=== PATIENT | male | born 1945 | race Caucasian/White ===

== ENCOUNTER → 2016-09-30 | Outpatient (CLI) | payer MEDICARE, OTHER, BC ==
[~2016-09-30] MED LIST: ALLO300T2 PO; ATO40T PO; BENA20TA4 PO; METO-169 PO; TRIATAB3 PO
[2016-09-30 09:25] LABS: Basophils # (auto) 0 uL; Basophils % (auto) 0.7 % (0.0-2.0); Eosinophils # (auto) 0.2 uL; Eosinophils % (auto) 2.7 % (0.0-7.0); Hematocrit 45.2 % (41.0-53.0); Hemoglobin 15.2 g/dL (13.5-17.5); Lymphocytes # (auto) 1.6 uL; Lymphocytes % (auto) 24.7 % (10.0-50.0); Mean Corpuscular Hemoglobin 30.4 pg (28.0-32.0); Mean Corpuscular Hgb Conc. 33.7 g/dL (32.0-36.0); Mean Corpuscular Volume 90.3 fL (80.0-100.0); Monocytes # (auto) 0.4 uL; Monocytes % (auto) 5.7 % (0.0-12.0); Neutrophils # (auto) 4.2 uL; Neutrophils % (auto) 66.2 % (37.0-80.0); Platelet Count (auto) 221 10^3/uL (140-450); Red Cell Distribution Width 13.9 % (11.6-16.0); White Blood Cell 6.4 10^3/uL (4.4-10.8)
[2016-09-30 09:59] LABS: Albumin 3.8 g/dL (3.4-5.0); BUN/Creatinine Ratio 21.3; Bilirubin, Total 0.6 mg/dL (0.2-1.0); Calcium 8.3 mg/dL (8.5-10.1); Potassium 4.2 mmol/L (3.5-5.1); Total Protein 7.1 g/dL (6.4-8.2); Uric Acid 4.7 mg/dL (3.5-7.2)
== END | disposition home or self-care (01) ==
LOC: LAB 08:17
DX: E79.0 Hyperuricemia without signs of inflammatory arthritis and tophaceous disease (principal); R42 Dizziness and giddiness; E78.5 Hyperlipidemia, unspecified; R73.9 Hyperglycemia, unspecified
CPT/HCPCS: 36415; 80053; 80061; 83036; 84443; 84550; 85025

== ENCOUNTER → 2017-01-19 | Outpatient (CLI) | payer MEDICARE, OTHER, BC ==
[~2017-01-19] MED LIST changes: +BENA20TA14 PO; -BENA20TA4 PO
[2017-01-19 07:49] LABS: Basophils # (auto) 0 uL; Basophils % (auto) 0.5 % (0.0-2.0); Eosinophils # (auto) 0.1 uL; Eosinophils % (auto) 2.5 % (0.0-7.0); Hemoglobin 14.2 g/dL (13.5-17.5); Lymphocytes # (auto) 1.3 uL; Mean Corpuscular Hemoglobin 31.7 pg (28.0-32.0); Mean Corpuscular Hgb Conc. 34.7 g/dL (32.0-36.0); Mean Corpuscular Volume 91.5 fL (80.0-100.0); Mean Platelet Volume 8.3 fL (7.4-10.4); Monocytes # (auto) 0.4 uL; Monocytes % (auto) 7.1 % (0.0-12.0); Neutrophils % (auto) 67.9 % (37.0-80.0); Platelet Count (auto) 196 10^3/uL (140-450); Red Cell Distribution Width 14.4 % (11.6-16.0); White Blood Cell 5.9 10^3/uL (4.4-10.8)
[2017-01-19 08:05] LABS: Albumin 3.8 g/dL (3.4-5.0); BUN/Creatinine Ratio 20.2; Calcium 8.4 mg/dL (8.5-10.1); Potassium 3.8 mmol/L (3.5-5.1); Total Protein 6.6 g/dL (6.4-8.2); Uric Acid 5.2 mg/dL (3.5-7.2)
== END | disposition home or self-care (01) ==
LOC: LAB 07:13
DX: R73.9 Hyperglycemia, unspecified (principal); R97.20 Elevated prostate specific antigen [PSA]; R42 Dizziness and giddiness; E03.9 Hypothyroidism, unspecified; E78.5 Hyperlipidemia, unspecified; E79.0 Hyperuricemia without signs of inflammatory arthritis and tophaceous disease
CPT/HCPCS: 36415; 80053; 80061; 83036; 84439; 84443; 84550; 85025

== ENCOUNTER → 2017-04-27 | Outpatient (CLI) | payer MEDICARE, OTHER, BC ==
[2017-04-27 08:14] LABS: Basophils # (auto) 0.1 uL; Basophils % (auto) 0.9 % (0.0-2.0); CONDITION Y; Eosinophils # (auto) 0.2 uL; Eosinophils % (auto) 3.4 % (0.0-7.0); Hematocrit 45.2 % (41.0-53.0); Hemoglobin 15.4 g/dL (13.5-17.5); Lymphocytes # (auto) 1.4 uL; Lymphocytes % (auto) 22.4 % (10.0-50.0); Mean Corpuscular Hemoglobin 31.8 pg (28.0-32.0); Mean Corpuscular Volume 93.3 fL (80.0-100.0); Mean Platelet Volume 8.3 fL (6.9-10.8); Monocytes # (auto) 0.4 uL; Monocytes % (auto) 7.1 % (0.0-12.0); Neutrophils # (auto) 4.2 uL; Neutrophils % (auto) 66.2 % (37.0-80.0); Platelet Count (auto) 218 10^3/uL (140-450); Red Cell Distribution Width 14.1 % (11.8-14.3); White Blood Cell 6.3 10^3/uL (4.4-10.8)
[2017-04-27 08:46] LABS: Albumin 3.8 g/dL (3.4-5.0); BUN/Creatinine Ratio 12.9; Calcium 8.8 mg/dL (8.5-10.1); Potassium 4.3 mmol/L (3.5-5.1)
[2017-04-27 08:50] LABS: Bilirubin, Total 0.6 mg/dL (0.2-1.0); Total Protein 6.8 g/dL (6.4-8.2)
== END | disposition home or self-care (01) ==
LOC: LAB 07:49
DX: E78.5 Hyperlipidemia, unspecified (principal); R73.9 Hyperglycemia, unspecified; R42 Dizziness and giddiness; E03.9 Hypothyroidism, unspecified; E79.0 Hyperuricemia without signs of inflammatory arthritis and tophaceous disease; R97.21 Rising PSA following treatment for malignant neoplasm of prostate
CPT/HCPCS: 36415; 80053; 80061; 83036; 84153; 84439; 84443; 84550; 85025

== ENCOUNTER → 2017-08-07 | Outpatient (CLI) | payer MEDICARE, OTHER ==
[2017-08-07 12:12] LABS: BUN/Creatinine Ratio 23.5; Bilirubin, Total 0.8 mg/dL (0.2-1.0); Calcium 8.6 mg/dL (8.5-10.1); Potassium 3.8 mmol/L (3.5-5.1); Total Protein 7.2 g/dL (6.4-8.2)
== END | disposition home or self-care (01) ==
LOC: LAB 10:30
DX: E03.9 Hypothyroidism, unspecified (principal); E78.5 Hyperlipidemia, unspecified; R73.9 Hyperglycemia, unspecified
CPT/HCPCS: 36415; 80053; 80061; 83036; 84436; 84443

== ENCOUNTER → 2017-11-09 | Outpatient (CLI) | payer MEDICARE, OTHER ==
[2017-11-09 09:11] LABS: Albumin 3.4 g/dL (3.4-5.0); BUN/Creatinine Ratio 16.7; Bilirubin, Total 0.6 mg/dL (0.2-1.0); Calcium 7.9 mg/dL (8.5-10.1); Potassium 4.1 mmol/L (3.5-5.1); Total Protein 6.6 g/dL (6.4-8.2); Uric Acid 4.4 mg/dL (3.5-7.2)
[2017-11-09 10:14] LABS: Prostate Specific Antigen 2.02 ng/mL (0.0-4.0); T3 Total 0.79 ng/mL (0.60-1.81)
== END | disposition home or self-care (01) ==
LOC: LAB 08:16
DX: E78.5 Hyperlipidemia, unspecified (principal); N40.1 Benign prostatic hyperplasia with lower urinary tract symptoms; E03.9 Hypothyroidism, unspecified; E79.0 Hyperuricemia without signs of inflammatory arthritis and tophaceous disease
CPT/HCPCS: 36415; 80053; 80061; 84153; 84436; 84443; 84480; 84550

== ENCOUNTER 2017-11-12 16:04 | Emergency (ER) | payer MEDICARE, OTHER ==
[~2017-11-12] VITALS: Ht 175.3 cm; Wt 78.5 kg
[2017-11-12 18:21] LABS: Basophils # (auto) 0.1 uL; Basophils % (auto) 1.1 % (0.0-2.0); Eosinophils # (auto) 0.3 uL; Eosinophils % (auto) 5.1 % (0.0-7.0); Hematocrit 38.3 % (41.0-53.0); Hemoglobin 12.8 g/dL (13.5-17.5); Lymphocytes # (auto) 1.5 uL; Lymphocytes % (auto) 26.1 % (10.0-50.0); Mean Corpuscular Hemoglobin 31.3 pg (28.0-32.0); Mean Corpuscular Hgb Conc. 33.4 g/dL (32.0-36.0); Mean Corpuscular Volume 93.8 fL (80.0-100.0); Monocytes # (auto) 0.5 uL; Neutrophils # (auto) 3.5 uL; Neutrophils % (auto) 59.7 % (37.0-80.0); Platelet Count (auto) 180 10^3/uL (140-450); Red Blood Cells 4.09 10^6/uL (4.5-5.90); Red Cell Distribution Width 14.1 % (11.8-14.3); White Blood Cell 5.8 10^3/uL (4.4-10.8)
[2017-11-12 18:24] LABS: Albumin 3.7 g/dL (3.4-5.0); Bilirubin, Total 0.5 mg/dL (0.2-1.0); Calcium 8.4 mg/dL (8.5-10.1); Total Protein 6.9 g/dL (6.4-8.2)
[2017-11-12 18:42] LABS: Partial Thromboplastin Time 48.6 sec (22.64-33.71); Prothrombin Time 50.1 sec (9.37-12.3)
[2017-11-12 18:49] LABS: INR 4.53 (0.9-1.15)
[2017-11-12 19:48] VITALS: BP 122/80
== END 2017-11-13 00:15 | disposition home or self-care (01) ==
LOC: ER 16:06
DX: S93.401A Sprain of unspecified ligament of right ankle, initial encounter (principal); I10 Essential (primary) hypertension; E78.5 Hyperlipidemia, unspecified; I25.2 Old myocardial infarction; M10.9 Gout, unspecified; Z90.89 Acquired absence of other organs; Z98.61 Coronary angioplasty status; X50.0XXA Overexertion from strenuous movement or load, initial encounter; Y93.89 Activity, other specified; Y99.8 Other external cause status; Y92.89 Other specified places as the place of occurrence of the external cause
CPT/HCPCS: 29515; 36415; 73610; 73630; 73700; 80053; 83880; 84550; 85025; 85610; 85730; 93970

== ENCOUNTER → 2017-11-30 | Outpatient (CLI) | payer MEDICARE, OTHER ==
[2017-11-30 09:12] LABS: Albumin 3.6 g/dL (3.4-5.0); BUN/Creatinine Ratio 15.4; Bilirubin, Total 0.7 mg/dL (0.2-1.0); Calcium 8.6 mg/dL (8.5-10.1); Total Protein 6.6 g/dL (6.4-8.2)
== END | disposition home or self-care (01) ==
LOC: LAB 07:42
DX: E11.65 Type 2 diabetes mellitus with hyperglycemia (principal); I10 Essential (primary) hypertension; E78.5 Hyperlipidemia, unspecified
CPT/HCPCS: 36415; 80053; 80061; 83036

== ENCOUNTER → 2018-02-01 | Outpatient (CLI) | payer MEDICARE, OTHER ==
[2018-02-01 07:47] LABS: Basophils # (auto) 0.1 uL; Basophils % (auto) 1.3 % (0.0-2.0); Eosinophils # (auto) 0.2 uL; Eosinophils % (auto) 4.7 % (0.0-7.0); Hematocrit 40.8 % (41.0-53.0); Hemoglobin 13.9 g/dL (13.5-17.5); Lymphocytes % (auto) 20.6 % (10.0-50.0); Mean Corpuscular Hemoglobin 31.4 pg (28.0-32.0); Mean Corpuscular Hgb Conc. 34.1 g/dL (32.0-36.0); Mean Corpuscular Volume 92.2 fL (80.0-100.0); Monocytes # (auto) 0.3 uL; Monocytes % (auto) 6.6 % (0.0-12.0); Neutrophils # (auto) 3.2 uL; Neutrophils % (auto) 66.8 % (37.0-80.0); Nucleated Red Blood Cells % 0.1 %; Platelet Count (auto) 154 10^3/uL (140-450); Red Blood Cells 4.42 10^6/uL (4.5-5.90); Red Cell Distribution Width 14.3 % (11.8-14.3); White Blood Cell 4.8 10^3/uL (4.4-10.8)
[2018-02-01 08:23] LABS: Albumin 3.8 g/dL (3.4-5.0); BUN/Creatinine Ratio 23.6; Bilirubin, Total 0.6 mg/dL (0.2-1.0); Calcium 8.6 mg/dL (8.5-10.1); Total Protein 6.8 g/dL (6.4-8.2)
[2018-02-01 09:02] LABS: Prostate Specific Antigen 1.38 ng/mL (0.0-4.0)
== END | disposition home or self-care (01) ==
LOC: LAB 07:14
DX: E34.9 Endocrine disorder, unspecified (principal); E29.1 Testicular hypofunction; E07.89 Other specified disorders of thyroid; E11.9 Type 2 diabetes mellitus without complications; E11.65 Type 2 diabetes mellitus with hyperglycemia; E03.9 Hypothyroidism, unspecified; I25.10 Atherosclerotic heart disease of native coronary artery without angina pectoris; I10 Essential (primary) hypertension; N40.0 Benign prostatic hyperplasia without lower urinary tract symptoms; R39.15 Urgency of urination; Z79.899 Other long term (current) drug therapy
CPT/HCPCS: 36415; 80053; 80061; 82306; 82607; 82670; 84153; 84402; 84403; 84436; 84443; 84481; 85025; 86376

== ENCOUNTER → 2018-03-11 | Outpatient (CLI) | payer MEDICARE, OTHER ==
[2018-03-11 08:59] LABS: Albumin 3.7 g/dL (3.4-5.0); BUN/Creatinine Ratio 15.8; Bilirubin, Total 0.9 mg/dL (0.2-1.0); Calcium 8.5 mg/dL (8.5-10.1); Potassium 3.9 mmol/L (3.5-5.1); Total Protein 6.8 g/dL (6.4-8.2); Uric Acid 4.7 mg/dL (3.5-7.2)
[2018-03-11 09:25] LABS: Prostate Specific Antigen 1.84 ng/mL (0.0-4.0)
[2018-03-11 09:26] LABS: T3 Total 1.09 ng/mL (0.60-1.81)
== END | disposition home or self-care (01) ==
LOC: LAB 07:38
DX: E78.5 Hyperlipidemia, unspecified (principal); E03.9 Hypothyroidism, unspecified; N40.1 Benign prostatic hyperplasia with lower urinary tract symptoms; E79.0 Hyperuricemia without signs of inflammatory arthritis and tophaceous disease; E11.9 Type 2 diabetes mellitus without complications; I10 Essential (primary) hypertension
CPT/HCPCS: 36415; 80053; 80061; 84153; 84436; 84443; 84480; 84550

== ENCOUNTER → 2018-05-31 | Outpatient (CLI) | payer MEDICARE, OTHER ==
[2018-05-31 10:16] LABS: Potassium 4.2 mmol/L (3.5-5.1)
[2018-05-31 10:30] LABS: Albumin 3.9 g/dL (3.4-5.0); BUN/Creatinine Ratio 20.2; Bilirubin, Total 0.7 mg/dL (0.2-1.0); Calcium 8.8 mg/dL (8.5-10.1); Total Protein 7.1 g/dL (6.4-8.2); Uric Acid 4.7 mg/dL (3.5-7.2)
== END | disposition home or self-care (01) ==
LOC: LAB 08:48
DX: E78.5 Hyperlipidemia, unspecified (principal); R73.9 Hyperglycemia, unspecified; E79.0 Hyperuricemia without signs of inflammatory arthritis and tophaceous disease
CPT/HCPCS: 36415; 80053; 80061; 82550; 83036; 84436; 84443; 84480; 84550

== ENCOUNTER → 2018-11-08 | Outpatient (CLI) | payer MEDICARE, OTHER ==
[2018-11-08 08:02] LABS: Albumin 3.9 g/dL (3.4-5.0); Calcium 9.1 mg/dL (8.5-10.1); Potassium 4.5 mmol/L (3.5-5.1); Uric Acid 4.6 mg/dL (3.5-7.2)
[2018-11-08 08:06] LABS: BUN/Creatinine Ratio 16.8; Bilirubin, Total 0.8 mg/dL (0.2-1.0); Total Protein 6.9 g/dL (6.4-8.2)
[2018-11-08 10:28] LABS: T3 Total 1.03 ng/mL (0.60-1.81)
[2018-11-08 10:29] LABS: Folate (Folic Acid) > 24.00 ng/mL (5.38-24)
== END | disposition home or self-care (01) ==
LOC: LAB 07:10
DX: E78.5 Hyperlipidemia, unspecified (principal); E53.9 Vitamin B deficiency, unspecified; E79.0 Hyperuricemia without signs of inflammatory arthritis and tophaceous disease; R73.9 Hyperglycemia, unspecified; I10 Essential (primary) hypertension
CPT/HCPCS: 36415; 80053; 80061; 82607; 82746; 83036; 84436; 84443; 84480; 84550

== ENCOUNTER → 2019-01-17 | Outpatient (CLI) | payer MEDICARE, OTHER | END | disposition home or self-care (01) | LOC: LAB 08:35 | DX: R97.20 Elevated prostate specific antigen [PSA] (principal) | CPT/HCPCS: 84153 ==

== ENCOUNTER → 2019-03-07 | Outpatient (CLI) | payer MEDICARE, OTHER ==
[2019-03-07 09:36] LABS: Potassium 3.8 mmol/L (3.5-5.1)
[2019-03-07 09:44] LABS: Albumin 3.8 g/dL (3.4-5.0); BUN/Creatinine Ratio 18.2; Bilirubin, Total 0.9 mg/dL (0.2-1.0); Calcium 8.5 mg/dL (8.5-10.1); Total Protein 7.2 g/dL (6.4-8.2); Uric Acid 4.8 mg/dL (3.5-7.2)
[2019-03-07 10:30] LABS: T3 Total 1.28 ng/mL (0.60-1.81)
[2019-03-07 10:31] LABS: Folate (Folic Acid) > 24.00 ng/mL (5.38-24)
== END | disposition home or self-care (01) ==
LOC: LAB 08:46
DX: E78.5 Hyperlipidemia, unspecified (principal); R73.9 Hyperglycemia, unspecified; E79.0 Hyperuricemia without signs of inflammatory arthritis and tophaceous disease; E53.9 Vitamin B deficiency, unspecified
CPT/HCPCS: 36415; 80053; 80061; 82550; 82607; 82746; 83036; 84436; 84443; 84480; 84550

== ENCOUNTER → 2019-06-20 | Outpatient (CLI) | payer MEDICARE, OTHER ==
[2019-06-20 09:57] LABS: Potassium 4.1 mmol/L (3.5-5.1)
[2019-06-20 10:04] LABS: Albumin 3.8 g/dL (3.4-5.0); BUN/Creatinine Ratio 21.7; Bilirubin, Total 0.6 mg/dL (0.2-1.0); Calcium 8.8 mg/dL (8.5-10.1); Total Protein 6.6 g/dL (6.4-8.2); Uric Acid 4.1 mg/dL (3.5-7.2)
[2019-06-20 10:10] LABS: Folate (Folic Acid) > 24.00 ng/mL (5.38-24); T3 Total 1.04 ng/mL (0.60-1.81)
== END | disposition home or self-care (01) ==
LOC: LAB 08:42
DX: E78.5 Hyperlipidemia, unspecified (principal); E79.0 Hyperuricemia without signs of inflammatory arthritis and tophaceous disease; E53.9 Vitamin B deficiency, unspecified; R73.9 Hyperglycemia, unspecified; I10 Essential (primary) hypertension; I25.2 Old myocardial infarction; Z98.61 Coronary angioplasty status; Z87.891 Personal history of nicotine dependence; Z98.890 Other specified postprocedural states
CPT/HCPCS: 36415; 80053; 80061; 82550; 82746; 83036; 84436; 84443; 84480; 84550

== ENCOUNTER → 2019-09-30 | Outpatient (CLI) | payer MEDICARE, OTHER ==
[2019-09-30 11:55] LABS: Potassium 3.8 mmol/L (3.5-5.1)
[2019-09-30 12:05] LABS: Free T4 (Free Thyroxine) 0.98 ng/dL (0.89-1.76); T3 Total 0.86 ng/mL (0.60-1.81)
[2019-09-30 12:06] LABS: Albumin 3.7 g/dL (3.4-5.0); BUN/Creatinine Ratio 17.5; Bilirubin, Total 0.7 mg/dL (0.2-1.0); Calcium 8.7 mg/dL (8.5-10.1); Folate (Folic Acid) > 24.00 ng/mL (5.38-24); Total Protein 6.5 g/dL (6.4-8.2); Uric Acid 4.6 mg/dL (3.5-7.2)
== END | disposition home or self-care (01) ==
LOC: LAB 10:52
DX: E78.5 Hyperlipidemia, unspecified (principal); R73.9 Hyperglycemia, unspecified; E79.0 Hyperuricemia without signs of inflammatory arthritis and tophaceous disease
CPT/HCPCS: 36415; 80053; 80061; 82607; 82746; 83036; 84439; 84443; 84480; 84550

== ENCOUNTER → 2019-12-12 | Outpatient (CLI) | payer MEDICARE, OTHER ==
[2019-12-12 08:45] LABS: Albumin 3.5 g/dL (3.4-5.0); BUN/Creatinine Ratio 19.4; Calcium 8.6 mg/dL (8.5-10.1); Potassium 3.8 mmol/L (3.5-5.1); Uric Acid 4.4 mg/dL (3.5-7.2)
[2019-12-12 08:48] LABS: Bilirubin, Total 0.6 mg/dL (0.2-1.0); Total Protein 6.7 g/dL (6.4-8.2)
[2019-12-12 08:58] LABS: T3 Total 0.74 ng/mL (0.60-1.81)
== END | disposition home or self-care (01) ==
LOC: LAB 07:28
DX: E78.5 Hyperlipidemia, unspecified (principal); R73.9 Hyperglycemia, unspecified; E53.9 Vitamin B deficiency, unspecified; E79.0 Hyperuricemia without signs of inflammatory arthritis and tophaceous disease
CPT/HCPCS: 36415; 80053; 80061; 82550; 82607; 83036; 84436; 84443; 84480; 84550

== ENCOUNTER → 2020-01-26 | Outpatient (CLI) | payer MEDICARE, OTHER | END | disposition home or self-care (01) | LOC: LAB 07:52 | DX: R97.20 Elevated prostate specific antigen [PSA] (principal) | CPT/HCPCS: 84154 ==

== ENCOUNTER 2020-02-09 12:53 | Emergency (ER) | payer MEDICARE, BC, OTHER ==
[~2020-02-09] VITALS: Ht 175.3 cm; Wt 78.5 kg
[2020-02-09 16:04] LABS: Basophils # (auto) 0.1 10 ^3/uL (0-0.2); Basophils % (auto) 0.7 % (0.0-2.0); Eosinophils # (auto) 0.1 10 ^3/uL (0-0.8); Eosinophils % (auto) 1.8 % (0.0-7.0); Hematocrit 41.8 % (41.0-53.0); Hemoglobin 14.2 g/dL (13.5-17.5); Lymphocytes # (auto) 1.1 10 ^3/uL (0.4-5.4); Lymphocytes % (auto) 14.7 % (10.0-50.0); Mean Corpuscular Hemoglobin 31.5 pg (28.0-32.0); Mean Corpuscular Volume 92.6 fL (80.0-100.0); Monocytes # (auto) 0.6 10 ^3/uL (0-1.3); Monocytes % (auto) 8.1 % (0.0-12.0); Neutrophils # (auto) 5.7 10 ^3/uL (1.6-8.6); Neutrophils % (auto) 74.7 % (37.0-80.0); Platelet Count (auto) 189 10^3/uL (140-450); Red Blood Cells 4.51 10^6/uL (4.5-5.90); Red Cell Distribution Width 14.6 % (11.8-14.3); White Blood Cell 7.6 10^3/uL (4.4-10.8)
[2020-02-09 16:23] LABS: Albumin 3.4 g/dL (3.4-5.0); Anion Gap 0 (5-15); Blood Urea Nitrogen 20 mg/dL (7-18); Calcium 8.2 mg/dL (8.5-10.1); Carbon Dioxide 33 mmol/L (21-32); Chloride 107 mmol/L (98-107); Glucose 103 mg/dL (74-106); Lipase 110 U/L (73-393); Potassium 3.7 mmol/L (3.5-5.1); Sodium 140 mmol/L (136-145)
[2020-02-09 16:26] LABS: Alanine Aminotransferase 30 U/L (16-61); GFR African American 100 mL/min; GFR Non-African American 83 mL/min
[2020-02-09 16:38] LABS: Alkaline Phosphatase 83 U/L (45-117); Aspartate Aminotransferase 24 U/L (15-37); Bilirubin, Total 0.7 mg/dL (0.2-1.0); Total Protein 6.5 g/dL (6.4-8.2)
[2020-02-09 17:10] VITALS: BP 134/74
[2020-02-09 17:48] LABS: BUN/Creatinine Ratio 21.1
== END 2020-02-09 18:23 | disposition home or self-care (01) ==
LOC: ER 12:53
DX: K29.70 Gastritis, unspecified, without bleeding (principal); E78.5 Hyperlipidemia, unspecified; I10 Essential (primary) hypertension; I25.2 Old myocardial infarction
CPT/HCPCS: 36415; 71046; 76700; 80053; 83690; 84484; 85025; 93005

== ENCOUNTER → 2020-03-22 | Outpatient (CLI) | payer MEDICARE, OTHER | END | disposition home or self-care (01) | LOC: LAB 09:28 | PROVIDERS: ATTEND Urology | DX: R97.20 Elevated prostate specific antigen [PSA] (principal) | CPT/HCPCS: 84154 ==

== ENCOUNTER → 2020-04-26 | Outpatient (CLI) | payer MEDICARE, OTHER ==
[~2020-04-26] VITALS: Ht 175.3 cm; Wt 77.6 kg
[~2020-04-26] MED LIST changes: +ADENOSINE 65 MG in GIVE UN-DILUTED 0 ML IV STA
== END | disposition home or self-care (01) ==
LOC: XY 08:41
PROVIDERS: ATTEND Internal Medicine
DX: I48.91 Unspecified atrial fibrillation (principal)
CPT/HCPCS: 78452; 93017; A9500; J0153

== ENCOUNTER → 2020-05-01 | Outpatient (CLI) | payer MEDICARE, OTHER ==
[~2020-05-01] MED LIST changes: -ADENOSINE 65 MG in GIVE UN-DILUTED 0 ML IV STA
[2020-05-01 10:43] LABS: Potassium 3.9 mmol/L (3.5-5.1)
[2020-05-01 10:49] LABS: T3 Total 0.86 ng/mL (0.60-1.81)
[2020-05-01 10:50] LABS: Folate (Folic Acid) > 24.00 ng/mL (5.38-24)
[2020-05-01 10:51] LABS: Albumin 3.7 g/dL (3.4-5.0); BUN/Creatinine Ratio 21.3; Bilirubin, Total 0.7 mg/dL (0.2-1.0); Calcium 8.6 mg/dL (8.5-10.1); Total Protein 6.5 g/dL (6.4-8.2); Uric Acid 4.8 mg/dL (3.5-7.2)
== END | disposition home or self-care (01) ==
LOC: LAB 09:42
DX: E78.5 Hyperlipidemia, unspecified (principal); E53.9 Vitamin B deficiency, unspecified; E79.0 Hyperuricemia without signs of inflammatory arthritis and tophaceous disease; R73.9 Hyperglycemia, unspecified
CPT/HCPCS: 36415; 80053; 80061; 82550; 82607; 82746; 83036; 84436; 84443; 84480; 84550

== ENCOUNTER → 2020-05-23 | Outpatient (CLI) | payer MEDICARE, OTHER ==
[2020-05-23 10:48] LABS: Basophils # (auto) 0.1 10 ^3/uL (0-0.2); Eosinophils # (auto) 0.3 10 ^3/uL (0-0.8); Eosinophils % (auto) 5.4 % (0.0-7.0); Hematocrit 38.1 % (41.0-53.0); Hemoglobin 13.1 g/dL (13.5-17.5); Lymphocytes # (auto) 1.4 10 ^3/uL (0.4-5.4); Lymphocytes % (auto) 27.2 % (10.0-50.0); Mean Corpuscular Hgb Conc. 34.5 g/dL (32.0-36.0); Mean Corpuscular Volume 92.9 fL (80.0-100.0); Monocytes # (auto) 0.4 10 ^3/uL (0-1.3); Monocytes % (auto) 7.3 % (0.0-12.0); Neutrophils # (auto) 2.9 10 ^3/uL (1.6-8.6); Neutrophils % (auto) 58.1 % (37.0-80.0); Platelet Count (auto) 167 10^3/uL (140-450); Red Cell Distribution Width 14.3 % (11.8-14.3)
[2020-05-23 11:31] LABS: Albumin 3.7 g/dL (3.4-5.0); Calcium 8.8 mg/dL (8.5-10.1); Potassium 3.7 mmol/L (3.5-5.1)
[2020-05-23 11:36] LABS: BUN/Creatinine Ratio 19.8; Bilirubin, Total 0.6 mg/dL (0.2-1.0); Total Protein 6.3 g/dL (6.4-8.2)
[2020-05-23 12:16] LABS: Folate (Folic Acid) > 24.00 ng/mL (5.38-24)
== END | disposition home or self-care (01) ==
LOC: LAB 10:30
DX: G31.84 Mild cognitive impairment of uncertain or unknown etiology (principal); R73.9 Hyperglycemia, unspecified; E78.5 Hyperlipidemia, unspecified
CPT/HCPCS: 36415; 80053; 80061; 82550; 82607; 82746; 83036; 84436; 84443; 85025

== ENCOUNTER → 2020-06-13 | Outpatient (CLI) | payer MEDICARE, OTHER | END | disposition home or self-care (01) | LOC: XYW 09:27 | PROVIDERS: ATTEND Internal Medicine | DX: I07.1 Rheumatic tricuspid insufficiency (principal); I48.91 Unspecified atrial fibrillation | CPT/HCPCS: 93306 ==

== ENCOUNTER → 2020-07-23 | Outpatient (CLI) | payer MEDICARE, OTHER ==
[2020-07-23 10:29] LABS: Basophils # (auto) 0.1 10 ^3/uL (0-0.2); Basophils % (auto) 1.3 % (0.0-2.0); Eosinophils # (auto) 0.1 10 ^3/uL (0-0.8); Eosinophils % (auto) 2.3 % (0.0-7.0); Hematocrit 39.9 % (41.0-53.0); Hemoglobin 13.5 g/dL (13.5-17.5); Lymphocytes # (auto) 1.4 10 ^3/uL (0.4-5.4); Lymphocytes % (auto) 23.8 % (10.0-50.0); Mean Corpuscular Hemoglobin 31.4 pg (28.0-32.0); Mean Corpuscular Hgb Conc. 33.8 g/dL (32.0-36.0); Mean Corpuscular Volume 92.8 fL (80.0-100.0); Monocytes # (auto) 0.4 10 ^3/uL (0-1.3); Monocytes % (auto) 7.4 % (0.0-12.0); Neutrophils # (auto) 3.8 10 ^3/uL (1.6-8.6); Neutrophils % (auto) 65.2 % (37.0-80.0); Platelet Count (auto) 176 10^3/uL (140-450); Red Blood Cells 4.29 10^6/uL (4.5-5.90); Red Cell Distribution Width 14.1 % (11.8-14.3); White Blood Cell 5.8 10^3/uL (4.4-10.8)
[2020-07-23 10:52] LABS: Albumin 3.6 g/dL (3.4-5.0); Calcium 8.5 mg/dL (8.5-10.1)
[2020-07-23 11:17] LABS: Folate (Folic Acid) > 24.00 ng/mL (5.38-24)
[2020-07-23 11:33] LABS: BUN/Creatinine Ratio 18.8; Bilirubin, Total 0.6 mg/dL (0.2-1.0); Total Protein 6.4 g/dL (6.4-8.2)
== END | disposition home or self-care (01) ==
LOC: LAB 10:06
DX: G31.84 Mild cognitive impairment of uncertain or unknown etiology (principal); E78.5 Hyperlipidemia, unspecified; R73.9 Hyperglycemia, unspecified
CPT/HCPCS: 36415; 80053; 80061; 82550; 82607; 82746; 83036; 84436; 84443; 85025

== ENCOUNTER 2020-11-15 15:51 | Emergency (ER) | payer MEDICARE, BC, OTHER ==
[~2020-11-15] VITALS: Ht 175.3 cm; Wt 82.1 kg
[~2020-11-15 15:51] MED LIST changes: -METO-169 PO; +METO-289 PO
[2020-11-15 16:02] VITALS: BP 137/82
== END 2020-11-15 17:42 | disposition home or self-care (01) ==
LOC: ER 15:51
DX: S13.4XXA Sprain of ligaments of cervical spine, initial encounter (principal); E78.5 Hyperlipidemia, unspecified; I10 Essential (primary) hypertension; I25.2 Old myocardial infarction; V43.52XA Car driver injured in collision with other type car in traffic accident, initial encounter; Y93.89 Activity, other specified; Y92.488 Other paved roadways as the place of occurrence of the external cause; Y99.8 Other external cause status
CPT/HCPCS: 71046; 93005

== ENCOUNTER → 2020-12-01 | Outpatient (CLI) | payer MEDICARE, OTHER ==
[~2020-12-01] MED LIST changes: +METO-169 PO; -METO-289 PO
[2020-12-01 08:34] LABS: Basophils # (auto) 0.1 10 ^3/uL (0-0.2); Basophils % (auto) 1.2 % (0.0-2.0); Eosinophils # (auto) 0.2 10 ^3/uL (0-0.8); Eosinophils % (auto) 2.3 % (0.0-7.0); Hematocrit 44.5 % (41.0-53.0); Hemoglobin 15.3 g/dL (13.5-17.5); Lymphocytes # (auto) 1.4 10 ^3/uL (0.4-5.4); Lymphocytes % (auto) 21.3 % (10.0-50.0); Mean Corpuscular Hemoglobin 31.2 pg (28.0-32.0); Mean Corpuscular Hgb Conc. 34.3 g/dL (32.0-36.0); Mean Corpuscular Volume 90.8 fL (80.0-100.0); Monocytes # (auto) 0.3 10 ^3/uL (0-1.3); Monocytes % (auto) 4.9 % (0.0-12.0); Neutrophils # (auto) 4.6 10 ^3/uL (1.6-8.6); Neutrophils % (auto) 70.3 % (37.0-80.0); Nucleated Red Blood Cells % 0.1 %; Platelet Count (auto) 201 10^3/uL (140-450); Red Cell Distribution Width 14.9 % (11.8-14.3); White Blood Cell 6.5 10^3/uL (4.4-10.8)
[2020-12-01 09:24] LABS: Albumin 3.7 g/dL (3.4-5.0); Calcium 8.5 mg/dL (8.5-10.1); Potassium 3.7 mmol/L (3.5-5.1)
[2020-12-01 09:30] LABS: BUN/Creatinine Ratio 16.7; Bilirubin, Total 0.7 mg/dL (0.2-1.0); Total Protein 6.8 g/dL (6.4-8.2)
[2020-12-03 10:07] LABS: Folate (Folic Acid) 20.87 ng/mL (5.38-24)
== END | disposition home or self-care (01) ==
LOC: LAB 08:08
DX: E78.5 Hyperlipidemia, unspecified (principal); R73.9 Hyperglycemia, unspecified; G31.84 Mild cognitive impairment of uncertain or unknown etiology
CPT/HCPCS: 36415; 80053; 80061; 82550; 82607; 82746; 83036; 84436; 84443; 85025

== ENCOUNTER 2021-06-25 11:14 | Inpatient (IN) | payer OTHER, MEDICARE ==
[2021-06-25] VITALS (7 sets, daily range): BP systolic 90–141; BP diastolic 60–91
[~2021-06-25] VITALS: Ht 190.5 cm; Wt 86.2 kg
[~2021-06-25 11:14] MED LIST changes: -METO-169 PO; +METO-289 PO
[2021-06-25] MEDS ORDERED: MIDAZOLAM DRIP 50 mg/50mL 50 ML IV ONE (11:23)
[2021-06-25] MEDS: MIDAZOLAM DRIP 50 mg/50mL 50 ML IV SCH ×2 (11:40→14:40)
[2021-06-25] MEDS ORDERED: MIDAZOLAM DRIP 50 mg/50mL 50 ML IV SCH (11:45)
[2021-06-25] MEDS ORDERED: SODIUM CHLORIDE 0.9% 1,000 ML IV ONE (12:00)
[2021-06-25] MEDS ORDERED: ACETAMINOPHEN 650 MG RECT SUPP PR ONE (12:00)
[2021-06-25] MEDS ORDERED: cefTRIAXone 1GM/50ML D5W 50 ML IV ONE (12:00)
[2021-06-25] MEDS ORDERED: dilTIAZem 25 MG/5 ML VIAL IV ONE (12:15)
[2021-06-25] MEDS ORDERED: dilTIAZem 125mg/125ml BAG KIT 125 ML IV ONE (12:15)
[2021-06-25 12:25] LABS: Basophils # (auto) 0.1 10 ^3/uL (0-0.2); Basophils % (auto) 0.7 % (0.0-2.0); Eosinophils # (auto) 0.3 10 ^3/uL (0-0.8); Eosinophils % (auto) 3.9 % (0.0-7.0); Hemoglobin 11.5 g/dL (13.5-17.5); Lymphocytes # (auto) 1.3 10 ^3/uL (0.4-5.4); Lymphocytes % (auto) 18.3 % (10.0-50.0); Mean Corpuscular Volume 93.8 fL (80.0-100.0); Monocytes # (auto) 0.3 10 ^3/uL (0-1.3); Neutrophils # (auto) 5.3 10 ^3/uL (1.6-8.6); Neutrophils % (auto) 73.1 % (37.0-80.0); Nucleated Red Blood Cells % 0.2 %; Red Blood Cells 3.84 10^6/uL (4.5-5.90); Red Cell Distribution Width 15.6 % (11.8-14.3); White Blood Cell 7.2 10^3/uL (4.4-10.8)
[2021-06-25 12:30] LABS: Albumin 2.5 g/dL (3.4-5.0); BUN/Creatinine Ratio 10.6; Calcium 8.4 mg/dL (8.5-10.1); Potassium 4.8 mmol/L (3.5-5.1)
[2021-06-25 12:32] LABS: Bilirubin, Total 0.5 mg/dL (0.2-1.0); Total Protein 6.7 g/dL (6.4-8.2)
[2021-06-25 13:28] LABS: Urine Bacteria FEW /hpf (None Seen); Urine Blood 2+ /uL (Negative); Urine Hyaline Cast MOD /lpf (0 - 2); Urine Mucus FEW (None Seen); Urine Specific Gravity 1.016 (1.001-1.035); Urine WBC 143 /hpf (0 - 3); Urine WBC Clumps PRESENT /hpf (None Seen)
[2021-06-25 13:33] LABS: Lactic Acid w/Reflex 6.3 mmol/L (0.4-2.0)
[2021-06-25 13:36] LABS: INR 1.08 (0.9-1.15); Partial Thromboplastin Time 26.8 sec (23.6-33.0)
[2021-06-25] MEDS ORDERED: ENOXAPARIN SOD 100 MG/1 ML SYRINGE SC ONE (17:30)
[2021-06-25] MEDS ORDERED: DEXTROSE (50%) 50ML SYRG IV PRN (17:45)
[2021-06-25] MEDS ORDERED: NITROGLYCERIN 0.4 MG SL TAB SL PRN ×2 (17:45→20:00)
[2021-06-25] MEDS ORDERED: MORPHINE SULFATE INJECTION 2 MG/ML SYRG IV PRN ×2 (17:45→20:00)
[2021-06-25] MEDS ORDERED: HYDROcodone-ACET 5/325MG TAB PO PRN (20:00)
[2021-06-25] MEDS ORDERED: ONDANSETRON HCL 4 MG/2 ML VIAL IV PRN (20:00)
[2021-06-25] MEDS ORDERED: metroNIDAZOLE 500MG/100ML 100 ML IV ONE (20:00)
[2021-06-25] MEDS ORDERED: LORazepam 0.5 MG TAB PO PRN (20:00)
[2021-06-25] MEDS ORDERED: ACETAMINOPHEN 325 MG TAB PO PRN (20:00)
[2021-06-25] MEDS ORDERED: DOCUSATE SOD 100 MG CAP PO PRN (20:00)
[2021-06-25] MEDS ORDERED: LORazepam 2MG/ML-1ML VIAL IV PRN (20:00)
[2021-06-25] MEDS ORDERED: FAMOTIDINE (10MG/ML) 2ML VL IV ONE (20:15)
[2021-06-25] MEDS ORDERED: ALBUMIN 5% 250 ML IV ONE (21:15)
[2021-06-25] MEDS: METOPROLOL TARTRATE 25 MG TAB PO SCH (22:00)
[2021-06-25] MEDS ORDERED: InsuLIN REG 1unit/0.01ml Soln (100units/ml) SC SCH (22:00)
[2021-06-25] MEDS ORDERED: ACCU-CHEK COMFORT CURVE STRIP VI SCH (22:00)
[2021-06-25] MEDS ORDERED: ASPirin 81 mg TAB PO ONE (22:45)
[2021-06-25 22:46] LABS: Amphetamine Screen, Urine NEGATIVE (NEGATIVE); Barbiturate Scree,Urine NEGATIVE (NEGATIVE); Benzodiazephine Screen, Urine POSITIVE (NEGATIVE); Cannabinoid Screen, Urine NEGATIVE (NEGATIVE); Cocaine Screen, Urine NEGATIVE (NEGATIVE); Opiate Scree,Urine POSITIVE (NEGATIVE); Phencyclidine Screen, Urine NEGATIVE (NEGATIVE)
[2021-06-25] MEDS: ATORVASTATIN 20 MG TAB PO SCH (22:49)
[2021-06-26] VITALS (32 sets, daily range): BP systolic 81–141; BP diastolic 53–88
[2021-06-26] MEDS: CEFEPIME 2 GM in SODIUM CHL 0.9% 50 ML IV SCH ×3 (00:02→16:40)
[2021-06-26] MEDS: FUROSEMIDE 20 MG/2 ML VIAL IV SCH ×2 (05:38→17:24)
[2021-06-26] MEDS: ENOXAPARIN SOD 100 MG/1 ML SYRINGE SC SCH ×2 (05:38→21:48)
[2021-06-26] MEDS: metroNIDAZOLE 500MG/100ML 100 ML IV SCH ×3 (05:52→21:47)
[2021-06-26] MEDS ORDERED: InsuLIN REG 1unit/0.01ml Soln (100units/ml) SC SCH (07:00)
[2021-06-26] MEDS: MIDAZOLAM DRIP 50 mg/50mL 50 ML IV SCH ×2 (08:00→18:23)
[2021-06-26 09:58] LABS: Basophils # (auto) 0 10 ^3/uL (0-0.2); Basophils % (auto) 0.4 % (0.0-2.0); Eosinophils # (auto) 0.4 10 ^3/uL (0-0.8); Eosinophils % (auto) 5.7 % (0.0-7.0); Hematocrit 27.3 % (41.0-53.0); Hemoglobin 9.2 g/dL (13.5-17.5); Lymphocytes # (auto) 0.7 10 ^3/uL (0.4-5.4); Lymphocytes % (auto) 9.8 % (10.0-50.0); Mean Corpuscular Hemoglobin 30.5 pg (28.0-32.0); Mean Corpuscular Hgb Conc. 33.6 g/dL (32.0-36.0); Mean Corpuscular Volume 90.8 fL (80.0-100.0); Monocytes # (auto) 0.3 10 ^3/uL (0-1.3); Monocytes % (auto) 4.8 % (0.0-12.0); Neutrophils # (auto) 5.6 10 ^3/uL (1.6-8.6); Neutrophils % (auto) 79.3 % (37.0-80.0); Red Blood Cells 3.01 10^6/uL (4.5-5.90); Red Cell Distribution Width 15.8 % (11.8-14.3); White Blood Cell 7.1 10^3/uL (4.4-10.8)
[2021-06-26] MEDS: METOPROLOL TARTRATE 25 MG TAB PO SCH ×3 (10:00→21:47)
[2021-06-26] MEDS ORDERED: LORazepam 2MG/ML-1ML VIAL IV PRN (10:00)
[2021-06-26] MEDS: ASPirin 81 mg TAB PO SCH (10:00)
[2021-06-26 10:02] LABS: INR 1.13 (0.9-1.15); Partial Thromboplastin Time 40.1 sec (23.6-33.0)
[2021-06-26] MEDS: LISINOPRIL 5 MG TAB PO SCH (10:27)
[2021-06-26 10:28] LABS: Albumin 2.1 g/dL (3.4-5.0); BUN/Creatinine Ratio 26.1; Bilirubin, Total 0.4 mg/dL (0.2-1.0); Calcium 7.8 mg/dL (8.5-10.1); Magnesium 2.4 mg/dL (1.6-2.6); Potassium 3.3 mmol/L (3.5-5.1); Total Protein 5.8 g/dL (6.4-8.2); Uric Acid 5.1 mg/dL (3.5-7.2)
[2021-06-26] MEDS: FAMOTIDINE (10MG/ML) 2ML VL IV SCH ×2 (10:56→21:47)
[2021-06-26] MEDS ORDERED: NOREPINEPHRINE 8 MG/250ML KIT 250 ML IV ONE (11:04)
[2021-06-26] MEDS: NOREPINEPHRINE 8 MG/250ML KIT 250 ML IV SCH (11:17)
[2021-06-26] MEDS ORDERED: METO-159 PO (11:25)
[2021-06-26] MEDS ORDERED: LISI20TA28 PO (11:25)
[2021-06-26] MEDS ORDERED: ASPI325T4 PO (11:26)
[2021-06-26] MEDS ORDERED: VALP250S19 PO (11:26)
[2021-06-26] MEDS ORDERED: FAMO20TA10 PO (11:26)
[2021-06-26] MEDS ORDERED: LEVE500T32 PO (11:32)
[2021-06-26] MEDS ORDERED: SENN-136 PO (11:43)
[2021-06-26] MEDS ORDERED: INSU1INJ19 SC (11:43)
[2021-06-26] MEDS: ATORVASTATIN 20 MG TAB PO SCH (21:47)
[2021-06-27] VITALS (88 sets, daily range): BP systolic 94–135; BP diastolic 63–91
[2021-06-27] MEDS: CEFEPIME 2 GM in SODIUM CHL 0.9% 50 ML IV SCH ×3 (00:08→16:00)
[2021-06-27] MEDS: MIDAZOLAM DRIP 50 mg/50mL 50 ML IV SCH ×2 (04:00→14:00)
[2021-06-27] MEDS: FUROSEMIDE 20 MG/2 ML VIAL IV SCH ×2 (05:16→17:46)
[2021-06-27] MEDS: metroNIDAZOLE 500MG/100ML 100 ML IV SCH ×2 (05:16→14:14)
[2021-06-27 07:20] LABS: Basophils # (auto) 0.1 10 ^3/uL (0-0.2); Basophils % (auto) 0.7 % (0.0-2.0); Eosinophils # (auto) 0.7 10 ^3/uL (0-0.8); Eosinophils % (auto) 8.8 % (0.0-7.0); Hematocrit 29.8 % (41.0-53.0); Hemoglobin 9.9 g/dL (13.5-17.5); Lymphocytes % (auto) 12.2 % (10.0-50.0); Mean Corpuscular Hemoglobin 30.1 pg (28.0-32.0); Mean Corpuscular Hgb Conc. 33.2 g/dL (32.0-36.0); Mean Corpuscular Volume 90.8 fL (80.0-100.0); Monocytes # (auto) 0.4 10 ^3/uL (0-1.3); Monocytes % (auto) 5.1 % (0.0-12.0); Neutrophils # (auto) 5.9 10 ^3/uL (1.6-8.6); Neutrophils % (auto) 73.2 % (37.0-80.0); Red Blood Cells 3.29 10^6/uL (4.5-5.90); Red Cell Distribution Width 15.6 % (11.8-14.3); White Blood Cell 8.1 10^3/uL (4.4-10.8)
[2021-06-27 07:30] LABS: Calcium 7.9 mg/dL (8.5-10.1); Potassium 3.2 mmol/L (3.5-5.1)
[2021-06-27 07:32] LABS: BUN/Creatinine Ratio 25.5
[2021-06-27] MEDS: METOPROLOL TARTRATE 25 MG TAB PO SCH ×2 (10:00→22:00)
[2021-06-27] MEDS: LISINOPRIL 5 MG TAB PO SCH (10:00)
[2021-06-27] MEDS: ENOXAPARIN SOD 100 MG/1 ML SYRINGE SC SCH ×2 (10:22→22:00)
[2021-06-27] MEDS: ASPirin 81 mg TAB PO SCH (10:22)
[2021-06-27] MEDS: FAMOTIDINE (10MG/ML) 2ML VL IV SCH ×2 (10:22→22:00)
[2021-06-27] MEDS: NOREPINEPHRINE 8 MG/250ML KIT 250 ML IV SCH (11:00)
[2021-06-27] MEDS: POTASSIUM CHL 20MEQ/100ML 100 ML IV SCH ×2 (15:00→16:30)
[2021-06-27] MEDS ORDERED: DOXYCYCLINE 100MG/250ML 250 ML IV SCH (15:30)
[2021-06-27] MEDS: MORPHINE SULFATE INJECTION 2 MG/ML SYRG IV PRN (20:45)
[2021-06-27] MEDS: ATORVASTATIN 20 MG TAB PO SCH (22:00)
[2021-06-27] MEDS: DOXYCYCLINE 100MG/250ML 250 ML IV SCH (22:00)
[2021-06-28] VITALS (7 sets, daily range): BP systolic 99–145; BP diastolic 56–80
[2021-06-28] MEDS: CEFEPIME 2 GM in SODIUM CHL 0.9% 50 ML IV SCH ×2 (00:13→08:11)
[2021-06-28 01:52] LABS: INR 1.17 (0.9-1.15); Partial Thromboplastin Time 38.4 sec (23.6-33.0)
[2021-06-28] MEDS: MORPHINE SULFATE INJECTION 2 MG/ML SYRG IV PRN (04:02)
[2021-06-28 07:08] LABS: Basophils # (auto) 0 10 ^3/uL (0-0.2); Basophils % (auto) 0.6 % (0.0-2.0); Eosinophils # (auto) 0.5 10 ^3/uL (0-0.8); Eosinophils % (auto) 7.8 % (0.0-7.0); Hematocrit 30.3 % (41.0-53.0); Hemoglobin 10.1 g/dL (13.5-17.5); Lymphocytes # (auto) 1.2 10 ^3/uL (0.4-5.4); Mean Corpuscular Hemoglobin 30.7 pg (28.0-32.0); Mean Corpuscular Hgb Conc. 33.2 g/dL (32.0-36.0); Mean Corpuscular Volume 92.5 fL (80.0-100.0); Monocytes # (auto) 0.5 10 ^3/uL (0-1.3); Monocytes % (auto) 7.5 % (0.0-12.0); Neutrophils # (auto) 4.6 10 ^3/uL (1.6-8.6); Neutrophils % (auto) 67.1 % (37.0-80.0); Nucleated Red Blood Cells % 0.1 %; Red Blood Cells 3.28 10^6/uL (4.5-5.90); Red Cell Distribution Width 15.8 % (11.8-14.3); White Blood Cell 6.8 10^3/uL (4.4-10.8)
[2021-06-28 07:22] LABS: BUN/Creatinine Ratio 31.7; Calcium 7.9 mg/dL (8.5-10.1); Potassium 3.8 mmol/L (3.5-5.1)
[2021-06-28 07:41] LABS: INR 1.16 (0.9-1.15); Partial Thromboplastin Time 38.4 sec (23.6-33.0)
[2021-06-28] MEDS: FUROSEMIDE 20 MG/2 ML VIAL IV SCH (07:56)
[2021-06-28] MEDS: MIDAZOLAM DRIP 50 mg/50mL 50 ML IV SCH ×2 (10:00)
[2021-06-28] MEDS: METOPROLOL TARTRATE 25 MG TAB PO SCH (10:00)
[2021-06-28] MEDS: LISINOPRIL 5 MG TAB PO SCH (10:00)
[2021-06-28] MEDS: FAMOTIDINE (10MG/ML) 2ML VL IV SCH (10:14)
[2021-06-28] MEDS: ENOXAPARIN SOD 100 MG/1 ML SYRINGE SC SCH (10:15)
[2021-06-28] MEDS: DOXYCYCLINE 100MG/250ML 250 ML IV SCH (10:20)
[2021-06-28] MEDS: ASPirin 81 mg TAB PO SCH (10:20)
[2021-06-28] MEDS: NOREPINEPHRINE 8 MG/250ML KIT 250 ML IV SCH (10:55)
[2021-06-28 12:40] LABS: INR 1.19 (0.9-1.15); Partial Thromboplastin Time 48.6 sec (23.6-33.0)
[2021-06-28] MEDS ORDERED: MORPHINE SULFATE INJECTION 2 MG/ML SYRG IV PRN (16:30)
[2021-06-28] MEDS ORDERED: LORazepam 2MG/ML-1ML VIAL IV PRN (16:30)
[2021-06-28 18:57] LABS: INR 1.16 (0.9-1.15)
[2021-06-29 05:02] VITALS: BP 130/89
[2021-06-29 09:00] VITALS: BP 145/89
[2021-06-29 10:57] VITALS: BP 111/80
[2021-06-29 13:00] VITALS: BP 134/92
== END 2021-06-29 13:26 | disposition hospice, home (50) | DRG 871 ==
LOC: ER 11:14 → EDBD 11:14 → TELE 17:45 → CENTRAL 06-28 12:46
PROVIDERS: ADMIT Hospitalist; ATTEND Internal Medicine Pulmonary Disease
PROC: 5A1945Z Respiratory Ventilation, 24-96 Consecutive Hours (ICD-10-PCS; principal; 2021-06-25)
PROC: 0BH17EZ Insertion of Endotracheal Airway into Trachea, Via Natural or Artificial Opening (ICD-10-PCS; 2021-06-25)
DX: A41.50 Gram-negative sepsis, unspecified (principal); G93.41 Metabolic encephalopathy; J69.0 Pneumonitis due to inhalation of food and vomit; J96.01 Acute respiratory failure with hypoxia; R65.21 Severe sepsis with septic shock; I21.4 Non-ST elevation (NSTEMI) myocardial infarction; N39.0 Urinary tract infection, site not specified; R65.20 Severe sepsis without septic shock; I50.82 Biventricular heart failure; L89.92 Pressure ulcer of unspecified site, stage 2; R62.7 Adult failure to thrive; F01.50 Vascular dementia, unspecified severity, without behavioral disturbance, psychotic disturbance, mood disturbance, and anxiety; E88.09 Other disorders of plasma-protein metabolism, not elsewhere classified; I48.0 Paroxysmal atrial fibrillation; Z74.01 Bed confinement status; Z20.822 Contact with and (suspected) exposure to COVID-19; D64.9 Anemia, unspecified; I11.0 Hypertensive heart disease with heart failure; E78.5 Hyperlipidemia, unspecified; Z66 Do not resuscitate; E87.6 Hypokalemia; F17.200 Nicotine dependence, unspecified, uncomplicated; M10.9 Gout, unspecified; G40.401 Other generalized epilepsy and epileptic syndromes, not intractable, with status epilepticus; I25.10 Atherosclerotic heart disease of native coronary artery without angina pectoris; I25.2 Old myocardial infarction; Z51.5 Encounter for palliative care; Z79.899 Other long term (current) drug therapy; Z80.9 Family history of malignant neoplasm, unspecified; Z82.49 Family history of ischemic heart disease and other diseases of the circulatory system; Z83.3 Family history of diabetes mellitus; Z95.0 Presence of cardiac pacemaker; Z79.82 Long term (current) use of aspirin; Z86.73 Personal history of transient ischemic attack (TIA), and cerebral infarction without residual deficits
CPT/HCPCS: 31500; 36415; 36556; 36600; 51702; 70450; 71045; 71250; 80048; 80053; 80307; 81001; 82085; 82550; 82805; 82962; 83036; 83605; 83735; 83880; 84100; 84146; 84484; 84550; 85025; 85379; 85610; 85730; 87040; 87070; 87077; 87086; 87186; 87205; 87426; 93005; 93306; 94002; 94003; 95819; 96365; 96372; 96375; 99291; G0378; J0696; J2250; J3480; J3490; J7060